=== PATIENT | female | born 1945 | race Caucasian/White ===

== ENCOUNTER → 2016-05-17 16:26 | Outpatient (CLI) | payer MEDICAID | END | disposition home or self-care (01) | LOC: D.MAMMO 10:45 | DX: Z12.31 Encounter for screening mammogram for malignant neoplasm of breast (principal) ==

== ENCOUNTER → 2020-07-26 09:26 | Outpatient (CLI) | payer MEDICARE | END | disposition home or self-care (01) | LOC: D.HCCECHO 09:26 | PROVIDERS: ATTEND Internal Medicine Cardiovascular Disease | DX: R06.00 Dyspnea, unspecified (principal) ==